=== PATIENT | male | born 1940 | race Caucasian/White ===

== ENCOUNTER → 2018-01-05 | Emergency (ER) | payer OTHER ==
[~2018-01-05] VITALS: Ht 160 cm; Wt 66.2 kg
[~2018-01-05] MED LIST: ALTACE1.25 MG PO; ATORVASTATIN CA40 MG PO; CEFADROXIL500 MG PO; CIPRO500 MG PO; CLONAZEPAM0.5 MG PO; DICLOFENAC SODI75 MG PO; FLUOXETINE HCL20 MG PO; GLYBURID-METFOR1 TA3 PO; METFORMIN HCL500 M2 PO; NEURONTIN800 MG PO; PENTOPAK400 MG PO; PERCOCET 5/321 UDTAB PO; RESTORIL30 M1 PO; RYBIX ODT50 MG PO; TAMS0.4C PO; URETRON D/S TAB1 TAB PO; XARELTO10 MG PO
== END | disposition home or self-care (01) ==
LOC: ER 11:14
DX: B34.9 Viral infection, unspecified (principal); J11.1 Influenza due to unidentified influenza virus with other respiratory manifestations

== ENCOUNTER 2018-01-13 09:13 | Emergency (ER) | payer OTHER ==
[~2018-01-13] VITALS: Ht 157.5 cm; Wt 65.8 kg
[2018-01-13] MEDS ORDERED: MUCINEX DM ER1 EAC1 PO (13:42)
[2018-01-13] MEDS ORDERED: MEDROLPACK PO (13:42)
[2018-01-13] MEDS ORDERED: LEVAQUIN750 MG PO (13:42)
[2018-01-13] MEDS ORDERED: LEVALBUTER1.25 MG/3 IH (13:42)
== END 2018-01-13 13:56 | disposition home or self-care (01) ==
LOC: ER 09:13
DX: J06.9 Acute upper respiratory infection, unspecified (principal); J11.1 Influenza due to unidentified influenza virus with other respiratory manifestations

== ENCOUNTER 2018-05-13 17:52 | Emergency (ER) | payer OTHER ==
[~2018-05-13] VITALS: Ht 157.5 cm; Wt 65.8 kg
[~2018-05-13 17:52] MED LIST changes: +LEVALBUTER1.25 MG/3 IH; +LEVAQUIN750 MG PO; +MEDROLPACK PO; +MUCINEX DM ER1 EAC1 PO
[2018-05-14] MEDS ORDERED: PERCOCET 5-3251 EACH PO (03:06)
== END 2018-05-14 03:04 | disposition home or self-care (01) ==
LOC: ER 17:52
DX: R10.32 Left lower quadrant pain (principal)

== ENCOUNTER 2018-07-15 10:36 | Emergency (ER) | payer OTHER ==
[~2018-07-15] VITALS: Ht 157.5 cm; Wt 63.5 kg
[~2018-07-15 10:36] MED LIST changes: +PERCOCET 5-3251 EACH PO
[2018-07-15] MEDS ORDERED: INTESTINEX680 M1 PO (20:01)
[2018-07-15] MEDS ORDERED: KRISTALOSE20 GM PO (20:01)
== END 2018-07-15 21:12 ==
LOC: ER 10:36
DX: K59.09 Other constipation (principal); C18.9 Malignant neoplasm of colon, unspecified